=== PATIENT | male | born 1960 | race Caucasian/White ===

== ENCOUNTER 2018-01-25 14:06 | Inpatient (IN) | payer OTHER ==
[~2018-01-25] VITALS: Ht 182.9 cm; Wt 93.0 kg
[~2018-01-25 14:06] MED LIST: GLYCOPYRROLATE 1 MG/5 ML SYRINGE IV PUSH ONE; LACTATED RINGER'S 1000 ML INJ 1,000 ML IV ONE; LIDOCAINE HCL 1% PF 5 ML SYRINGE OTHER ONE; NEOSTIGMINE 5 MG/5 ML SYRINGE IV PUSH ONE; ONDANSETRON HCL 4 MG/2 ML VIAL IV ONE; PHENYLEPH/NS 1000 MCG/10 ML SYR IV ONE; PROPOFOL 200 MG/20 ML AMP IV ONE; ROCURONIUM INJ 50 MG/5 ML SYRINGE IV PUSH ONE; SUCCINYLCHOLINE CHLORIDE 100 MG/5 ML SYRINGE IV PUSH ONE; ePHEDrine/NS 25 MG/5 ML SYRINGE IV ONE
[2018-01-25] MEDS ORDERED: IOHEXOL 350 MG/ML 10 ML VIAL (for RAD DIAG) IVCONTRAST ONE ×2 (14:07→21:10)
[2018-01-25 14:10] VITALS: O2SAT 98
[2018-01-25] MEDS ORDERED: MORPHINE SULFATE 4 MG/ML INJ ONE (14:12)
[2018-01-25] MEDS ORDERED: ceFAZolin 2 GM PREMIX 50 ML ONE (14:13)
[2018-01-25 14:15] VITALS: O2SAT 98
[2018-01-25] MEDS ORDERED: DIPHTH/TETANUS/ACEL PERTUSSIS (BOOSTER) 0.5 ML VIAL/PFS IM ONE (14:16)
[2018-01-25 14:31] LABS: BASOPHIL % 0.5 % (0.0-2.0); EOSINOPHIL # 0.1 TH/MM3 (0-0.4); EOSINOPHIL % 1.7 % (0.0-4.0); HEMATOCRIT 45.5 % (39.0-51.0); HEMOGLOBIN 15.6 GM/DL (13.0-17.0); LYMPH % 28.9 % (9.0-44.0); LYMPHOCYTE # 2.3 TH/MM3 (1.0-4.8); MEAN CELL VOLUME 90.6 FL (80.0-100.0); MEAN CORPUSCULAR HGB CONC 34.2 % (32.0-36.0); MEAN PLATELET VOLUME 8.3 FL (7.0-11.0); MONOCYTE # 0.5 TH/MM3 (0-0.9); NEUT % 62.9 % (16.0-70.0); PLATELET COUNT 218 TH/MM3 (150-450); RED BLOOD COUNT 5.02 MIL/MM3 (4.50-5.90); RED CELL DISTRIBUTION WIDTH 13.5 % (11.6-17.2)
[2018-01-25 14:43] LABS: PROTHROMBIN TIME - PATIENT 10.6 SEC (9.8-11.6)
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
[2018-01-25] MEDS ORDERED: MORPHINE SULFATE 4 MG/ML INJ IV PUSH ONE (14:45)
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
[2018-01-25 15:18] VITALS: PULSE 76; RESP 18; O2SAT 98
[2018-01-25] MEDS ORDERED: GENTAMICIN SULFATE 80 MG/2 ML VIAL ONE (15:34)
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
[2018-01-25] MEDS ORDERED: ONDANSETRON HCL 4 MG/2 ML VIAL IV PUSH PRN (18:30)
[2018-01-25] MEDS ORDERED: ACETAMINOPHEN/HYDROcodone 325 MG/5 MG TAB PO PRN ×3 (18:30→19:00)
[2018-01-25] MEDS ORDERED: ENALAPRILAT 1.25 MG/ML VIAL IV PUSH PRN (18:30)
[2018-01-25] MEDS ORDERED: MIDAZOLAM HCL 2 MG/2 ML VIAL ONE (18:52)
[2018-01-25] MEDS ORDERED: DO NOT ADM ANY ANTICOAGULANT DRUGS PRN (18:53)
[2018-01-25] MEDS ORDERED: ROPIVACAINE 1% PF INJ 20 ML AMP ONE (18:53)
[2018-01-25] MEDS ORDERED: LIDOCAINE 2%/EPINEPHrine PF 1:200,000 20ML SDV ONE (18:53)
[2018-01-25] MEDS ORDERED: *MEPERIDINE 25 MG INJ VIAL PERIprocedural Use ONLY ONE (18:55)
[2018-01-25] MEDS ORDERED: MORPHINE SULFATE 2 MG/ML SYRINGE SQ PRN (19:00)
[2018-01-25] MEDS ORDERED: GENTAMICIN SULFATE 80 MG/2 ML VIAL IM SCH (19:00)
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
[2018-01-25] MEDS: SODIUM CHLOR 0.9% 1000 ML INJ 1,000 ML IV SCH (19:30)
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
[2018-01-25] MEDS: PANTOPRAZOLE SODIUM 40 MG VIAL IVP SCH (19:45)
[2018-01-25 20:00] VITALS: BP 140/71; PULSE 80; RESP 18; TEMP 97.4; O2SAT 97
[2018-01-25] MEDS: GENTAMICIN INJ 80 MG in SODIUM CHLORIDE 0.9% INJ 100 ML IV SCH (22:39)
[2018-01-26] VITALS: BP 112/74; PULSE 102; RESP 18; TEMP 98.6; O2SAT 94
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
[2018-01-26 04:00] VITALS: BP 118/71; PULSE 84; RESP 18; TEMP 98.5; O2SAT 92
[2018-01-26 04:40] LABS: AUTOMATED NEUTROPHIL # 8.6 TH/MM3 (1.8-7.7); BASOPHIL % 0.1 % (0.0-2.0); HEMATOCRIT 37.4 % (39.0-51.0); HEMOGLOBIN 12.9 GM/DL (13.0-17.0); LYMPH % 4.5 % (9.0-44.0); LYMPHOCYTE # 0.4 TH/MM3 (1.0-4.8); MEAN CELL VOLUME 90.7 FL (80.0-100.0); MEAN CORPUSCULAR HEMOGLOBIN 31.2 PG (27.0-34.0); MEAN CORPUSCULAR HGB CONC 34.4 % (32.0-36.0); MEAN PLATELET VOLUME 8.1 FL (7.0-11.0); MONO % 4.7 % (0.0-8.0); MONOCYTE # 0.4 TH/MM3 (0-0.9); NEUT % 90.7 % (16.0-70.0); PLATELET COUNT 141 TH/MM3 (150-450); RED BLOOD COUNT 4.13 MIL/MM3 (4.50-5.90); RED CELL DISTRIBUTION WIDTH 13.1 % (11.6-17.2); WHITE BLOOD COUNT 9.5 TH/MM3 (4.0-11.0)
[2018-01-26] MEDS: SODIUM CHLOR 0.9% 1000 ML INJ 1,000 ML IV SCH ×3 (04:45→23:13)
[2018-01-26 05:01] LABS: ALBUMIN 3.2 GM/DL (3.4-5.0); AST (GOT) 33 U/L (15-37); BICARBONATE 24.8 MEQ/L (21.0-32.0); BLOOD UREA NITROGEN 14 MG/DL (7-18); CALCIUM 8.4 MG/DL (8.5-10.1); CHLORIDE 102 MEQ/L (98-107); CREATININE 1.35 MG/DL (0.60-1.30); GLOMERULAR FILTRATION RATE 46 ML/MIN (>89); GLUCOSE,RANDOM 137 MG/DL (74-106); SODIUM (NA) 137 MEQ/L (136-145)
[2018-01-26 05:02] LABS: ALT (GPT) 28 U/L (12-78)
[2018-01-26 05:04] LABS: ALKALINE PHOSPHATASE 49 U/L (45-117); TOTAL BILIRUBIN ADULT 0.6 MG/DL (0.2-1.0); TOTAL PROTEIN 6.4 GM/DL (6.4-8.2)
[2018-01-26] MEDS: GENTAMICIN INJ 80 MG in SODIUM CHLORIDE 0.9% INJ 100 ML IV SCH ×3 (05:22→21:48)
[2018-01-26 08:00] VITALS: BP 127/73; PULSE 83; RESP 19; TEMP 97.6; O2SAT 95
[2018-01-26] MEDS: MAGNESIUM HYDROXIDE SUSP 30 ML CUP PO SCH ×2 (08:56→21:47)
[2018-01-26] MEDS: DOCUSATE SODIUM 50 MG/SENNA 8.6 MG TAB PO SCH ×2 (08:56→21:47)
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
[2018-01-26 12:00] VITALS: BP 113/64; PULSE 75; RESP 18; TEMP 97.9; O2SAT 93
[2018-01-26] MEDS ORDERED: MAGN30S PO (13:20)
[2018-01-26] MEDS ORDERED: PERI PO (13:20)
[2018-01-26] MEDS: ENOXAPARIN SODIUM 40 MG/0.4 ML SYRINGE SQ SCH (14:02)
[2018-01-26 16:00] VITALS: BP 114/62; PULSE 78; RESP 17; TEMP 98; O2SAT 94
[2018-01-26] MEDS: PANTOPRAZOLE SODIUM 40 MG VIAL IVP SCH (18:01)
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
[2018-01-26 19:58] VITALS: BP 113/60; PULSE 82; RESP 17; TEMP 98.9; O2SAT 96
[2018-01-26] MEDS: ACETAMINOPHEN/HYDROcodone 325 MG/7.5 MG TAB PO PRN (21:48)
[2018-01-27] MEDS: GENTAMICIN INJ 80 MG in SODIUM CHLORIDE 0.9% INJ 100 ML IV SCH ×3 (04:32→21:23)
[2018-01-27] MEDS: ACETAMINOPHEN/HYDROcodone 325 MG/7.5 MG TAB PO PRN ×4 (04:40→17:53)
[2018-01-27 04:51] LABS: AUTOMATED NEUTROPHIL # 5.8 TH/MM3 (1.8-7.7); BASOPHIL % 0.1 % (0.0-2.0); HEMATOCRIT 31.8 % (39.0-51.0); HEMOGLOBIN 11.1 GM/DL (13.0-17.0); MEAN CELL VOLUME 91.2 FL (80.0-100.0); MEAN CORPUSCULAR HEMOGLOBIN 31.8 PG (27.0-34.0); MEAN CORPUSCULAR HGB CONC 34.9 % (32.0-36.0); MEAN PLATELET VOLUME 8.2 FL (7.0-11.0); MONO % 9.1 % (0.0-8.0); MONOCYTE # 0.7 TH/MM3 (0-0.9); NEUT % 77.8 % (16.0-70.0); PLATELET COUNT 117 TH/MM3 (150-450); RED BLOOD COUNT 3.49 MIL/MM3 (4.50-5.90); WHITE BLOOD COUNT 7.4 TH/MM3 (4.0-11.0)
[2018-01-27 05:05] LABS: BICARBONATE 30.3 MEQ/L (21.0-32.0); CALCIUM 7.9 MG/DL (8.5-10.1)
[2018-01-27 07:35] VITALS: BP 105/58; PULSE 70; RESP 18; TEMP 97.9; O2SAT 96
[2018-01-27] MEDS: MAGNESIUM HYDROXIDE SUSP 30 ML CUP PO SCH ×2 (09:08→21:22)
[2018-01-27] MEDS: DOCUSATE SODIUM 50 MG/SENNA 8.6 MG TAB PO SCH ×2 (09:08→21:22)
[2018-01-27] MEDS: SODIUM CHLOR 0.9% 1000 ML INJ 1,000 ML IV SCH (09:09)
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
[2018-01-27] MEDS: ENOXAPARIN SODIUM 40 MG/0.4 ML SYRINGE SQ SCH (14:03)
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
[2018-01-27 16:00] VITALS: BP 116/58; PULSE 82; RESP 19; TEMP 98.3; O2SAT 97
[2018-01-27] MEDS: MORPHINE SULFATE 2 MG/ML SYRINGE IV PRN (16:12)
[2018-01-27] MEDS: PANTOPRAZOLE SODIUM 40 MG VIAL IVP SCH (17:53)
[2018-01-27 20:00] VITALS: BP 130/72; PULSE 75; RESP 18; TEMP 98.8; O2SAT 97
[2018-01-28] VITALS: BP 150/75; PULSE 78; RESP 17; TEMP 97.2; O2SAT 95
[2018-01-28] MEDS: MORPHINE SULFATE 2 MG/ML SYRINGE IV PRN ×2 (02:58→06:56)
[2018-01-28] MEDS: SODIUM CHLORIDE 0.9% FLUSH 10 ML FLUSH IV FLUSH PRN ×2 (02:59→17:37)
[2018-01-28] MEDS: GENTAMICIN INJ 80 MG in SODIUM CHLORIDE 0.9% INJ 100 ML IV SCH ×2 (04:39→13:50)
[2018-01-28 07:25] VITALS: BP 144/80; PULSE 75; RESP 20; TEMP 99; O2SAT 96
[2018-01-28] MEDS ORDERED: WALKER WHEELS/F1 MIS (07:41)
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
[2018-01-28] MEDS: ACETAMINOPHEN/HYDROcodone 325 MG/7.5 MG TAB PO PRN ×4 (08:39→21:47)
[2018-01-28] MEDS: MAGNESIUM HYDROXIDE SUSP 30 ML CUP PO SCH ×2 (08:41→21:00)
[2018-01-28] MEDS: DOCUSATE SODIUM 50 MG/SENNA 8.6 MG TAB PO SCH ×2 (08:41→21:00)
[2018-01-28] MEDS: LACTULOSE SYRUP 20 GM/30 ML CUP PO SCH (08:41)
[2018-01-28 12:00] VITALS: BP 131/82; PULSE 78; RESP 20; TEMP 98.7; O2SAT 95
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
[2018-01-28] MEDS: ENOXAPARIN SODIUM 40 MG/0.4 ML SYRINGE SQ SCH (13:49)
[2018-01-28 16:00] VITALS: BP 127/70; PULSE 73; RESP 18; TEMP 98.6; O2SAT 97
--- NOTE | 2018-01-28 17:27 | PD.POD ---
Subjective Pain score: 5 Remarks Doing well he has questions regarding definitive care for his foot injuries. Pain appears to be well-controlled with oral pain meds. Past Med/Surg/Social History Social History Smoking Status: Never Smoker Objective Vital Signs Vital Signs Date Time Temp Pulse Resp B/P (MAP) Pulse Ox O2 Delivery O2 Flow Rate FiO2 01/28/18 16:00 98.6 73 18 127/70 (89) 97 01/28/18 12:00 98.7 78 20 131/82 (98) 95 01/28/18 09:39 16 01/28/18 07:25 99.0 75 20 144/80 (101) 96 01/28/18 00:00 97.2 78 17 150/75 (100) 95 01/27/18 20:00 98.8 75 18 130/72 (91) 97 Coded Allergies: No Known Allergies (Unverified , 01/25/18) Medications and IVs Administered Medications Medications (Trade) Dose Ordered Sig/Krissy Route PRN Reason Start Time Stop Time Status Last Admin Dose Admin Sodium Chloride (NS Flush) 2 ml UNSCH PRN IV FLUSH FLUSH AFTER USING IV ACCESS 01/25/18 18:30 01/28/18 02:59 Pantoprazole Sodium (Protonix Inj) 40 mg Q24H IVP 01/25/18 18:30 01/27/18 17:53 Cefazolin Sodium 1000 mg/Sodium Chloride 100 ml @ 200 mls/hr Q8H IV 01/25/18 14:00 01/28/18 15:20 Acetaminophen/ Hydrocodone Bitart ([place] 7.5-325 Mg) 1 tab Q4H PRN PO PAIN SCALE 6-10 01/25/18 19:00 01/28/18 13:48 Acetaminophen/ Hydrocodone Bitart ([place] 5-325 Mg) 1 tab Q4H PRN PO PAIN SCALE 1 -5 01/25/18 19:00 01/27/18 22:02 Gentamicin Sulfate 80 mg/ Sodium Chloride 102 ml @ 204 mls/hr Q8H IV 01/25/18 22:00 01/28/18 21:59 01/28/18 13:50 Senna/Docusate Sodium (Briana-Colace) 1 tab BID PO 01/26/18 09:00 01/28/18 08:41 Magnesium Hydroxide (Milk Of Magnesia Liq) 30 ml BID PO 01/26/18 09:00 01/28/18 08:41 Enoxaparin Sodium (Lovenox Inj) 40 mg Q24H SQ 01/26/18 14:00 01/28/18 13:49 Morphine Sulfate (Morphine Inj) 2 mg Q4H PRN IV breakthrough pain 01/27/18 16:15 01/28/18 06:56 Lactulose (Lactulose Liq) 30 ml DAILY PO 01/28/18 09:00 01/28/18 08:41 Other Results Laboratory Tests Test 01/27/18 04:25 White Blood Count 7.4 TH/MM3 Red Blood Count 3.49 MIL/MM3 Hemoglobin 11.1 GM/DL Hematocrit 31.8 % Mean Corpuscular Volume 91.2 FL Mean Corpuscular Hemoglobin 31.8 PG Mean Corpuscular Hemoglobin Concent 34.9 % Red Cell Distribution Width 13.0 % Platelet Count 117 TH/MM3 Mean Platelet Volume 8.2 FL Neutrophils (%) (Auto) 77.8 % Lymphocytes (%) (Auto) 13.0 % Monocytes (%) (Auto) 9.1 % Eosinophils (%) (Auto) 0.0 % Basophils (%) (Auto) 0.1 % Neutrophils # (Auto) 5.8 TH/MM3 Lymphocytes # (Auto) 1.0 TH/MM3 Monocytes # (Auto) 0.7 TH/MM3 Eosinophils # (Auto) 0.0 TH/MM3 Basophils # (Auto) 0.0 TH/MM3 CBC Comment DIFF FINAL Differential Comment Laboratory Tests Test 01/27/18 04:25 Blood Urea Nitrogen 15 MG/DL Creatinine 1.00 MG/DL Random Glucose 116 MG/DL Calcium Level 7.9 MG/DL Sodium Level 141 MEQ/L Potassium Level 4.0 MEQ/L Chloride Level 104 MEQ/L Carbon Dioxide Level 30.3 MEQ/L Anion Gap 7 MEQ/L Estimat Glomerular Filtration Rate 76 ML/MIN Microbiology Date/Time Source Procedure Growth Status 01/25/18 18:28 Wound Foot Fungal Smear - Final NO FUNGAL ELEMENTS SEEN. Resulted 01/25/18 18:28 Wound Foot Fungal Culture Pending Resulted 01/25/18 18:28 Wound Foot Acid Fast Stain - Final NO ACID FAST BACILLI SEEN Resulted 01/25/18 18:28 Wound Foot Mycobacterial Culture Pending Resulted 01/25/18 18:28 Wound Foot Gram Stain - Final Complete 4/24/18 18:28 Wound Foot Wound Culture - Final NO GROWTH IN 72 HRS.--AEROBICALLY OR ... Complete Physical Exam Remarks Left lower extremity examined: Capillary fill time appears to be only slightly delayed on the hallux. There is purple discoloration of second third fourth and significant darkness of the fifth digit. Pins intact external fixator bandaged splint intact calf nontender nondistended no strikethrough on bandage. Delayed sensation to the lesser digits. Assessment & Plan A/P Left foot complex laceration degloving injury, multiple metatarsal fractures, dislocation of MPJs, proximal fibular fracture minimally displaced. Status post incision and drainage debridement application of external fixator repair of complex laceration. Bandage will be changed tomorrow to review the extent of the surviving skin. We discussed in detail the high probability of needing a transmetatarsal amputation. We reviewed that it may take up to 3 weeks for the zone of injury to declare itself. Continue pain control for now. Will follow tomorrow Deven Larios DPM Jan 28, 2018 17:27
[2018-01-28] MEDS: PANTOPRAZOLE SODIUM 40 MG VIAL IVP SCH (17:36)
--- NOTE | 2018-01-28 17:43 | PD.POD ---
Subjective Podiatric Problems LATE ENTRY, PATIENT SEEN 01/27/18 AT 1800 POD #2 left foot pinning fixation of left foot met fractures and repair of degloving injury. Pt states that his pain is well tolerated with pain meds. He denies any n/v/f/h/c/sob. He has not attempted to get out of bed yet. Pain score: 5 Past Med/Surg/Social History Social History Smoking Status: Never Smoker Objective Vital Signs Vital Signs Date Time Temp Pulse Resp B/P (MAP) Pulse Ox O2 Delivery O2 Flow Rate FiO2 01/28/18 16:00 98.6 73 18 127/70 (89) 97 01/28/18 12:00 98.7 78 20 131/82 (98) 95 01/28/18 09:39 16 01/28/18 07:25 99.0 75 20 144/80 (101) 96 01/28/18 00:00 97.2 78 17 150/75 (100) 95 01/27/18 20:00 98.8 75 18 130/72 (91) 97 Coded Allergies: No Known Allergies (Unverified , 01/25/18) Exam-Podiatry Remarks Left foot:All sutures and pins intact, severe edema with mottling to the dorsal and plantar forefoot, CFT is mildly delayed to all digits, sensation is intact, ROM not tested Left fibula: mild tenderness to proximal fibula with palpation, no edema, no ecchymosis Calf is supple and non tender to compression, no signs of DVT Assessment & Plan A/P 1) s/p left foot degloving injury repair with temporary fixation of fractured met 2) Non displaced left fibula fracture -NWBing LLE -no ice, keep LLE in neutral position -cont pain meds and abx -will cont to monitor the pt closely while in house, he is aware that more surgery will be needed and possibly an amputation -no intervention needed for fibula fx Cassidy Merida DPM Jan 28, 2018 17:43
[2018-01-28 20:00] VITALS: BP 130/72; PULSE 80; RESP 20; TEMP 98.6; O2SAT 97
[2018-01-28 23:00] VITALS: BP 131/73; PULSE 97; RESP 16; TEMP 98.6; O2SAT 97
[2018-01-29] MEDS: ACETAMINOPHEN/HYDROcodone 325 MG/7.5 MG TAB PO PRN ×5 (02:14→22:01)
[2018-01-29 08:00] VITALS: BP 119/79; PULSE 74; RESP 17; TEMP 97.8; O2SAT 96
[2018-01-29] MEDS: DOCUSATE SODIUM 50 MG/SENNA 8.6 MG TAB PO SCH ×2 (08:40→22:00)
[2018-01-29] MEDS: LACTULOSE SYRUP 20 GM/30 ML CUP PO SCH (08:41)
[2018-01-29] MEDS: MAGNESIUM HYDROXIDE SUSP 30 ML CUP PO SCH ×2 (08:41→21:00)
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
[2018-01-29] MEDS: MORPHINE SULFATE 2 MG/ML SYRINGE IV PRN (09:46)
--- NOTE | 2018-01-29 10:39 | PD.POD ---
Subjective Pain score: 5 Remarks Patient slept well last night no new events foot pain appears to be controlled Past Med/Surg/Social History Social History Smoking Status: Never Smoker Objective Vital Signs Vital Signs Date Time Temp Pulse Resp B/P (MAP) Pulse Ox O2 Delivery O2 Flow Rate FiO2 01/29/18 08:00 97.8 74 17 119/79 (92) 96 01/28/18 23:00 98.6 97 16 131/73 (92) 97 01/28/18 20:00 98.6 80 20 130/72 (91) 97 01/28/18 16:00 98.6 73 18 127/70 (89) 97 01/28/18 12:00 98.7 78 20 131/82 (98) 95 Coded Allergies: No Known Allergies (Unverified , 01/25/18) Medications and IVs Administered Medications Medications (Trade) Dose Ordered Sig/Krissy Route PRN Reason Start Time Stop Time Status Last Admin Dose Admin Sodium Chloride (NS Flush) 2 ml UNSCH PRN IV FLUSH FLUSH AFTER USING IV ACCESS 01/25/18 18:30 01/28/18 17:37 Pantoprazole Sodium (Protonix Inj) 40 mg Q24H IVP 01/25/18 18:30 01/28/18 17:36 Cefazolin Sodium 1000 mg/Sodium Chloride 100 ml @ 200 mls/hr Q8H IV 01/25/18 14:00 01/29/18 05:12 Acetaminophen/ Hydrocodone Bitart ([place] 7.5-325 Mg) 1 tab Q4H PRN PO PAIN SCALE 6-10 01/25/18 19:00 01/29/18 06:36 Acetaminophen/ Hydrocodone Bitart ([place] 5-325 Mg) 1 tab Q4H PRN PO PAIN SCALE 1 -5 01/25/18 19:00 01/27/18 22:02 Senna/Docusate Sodium (Briana-Colace) 1 tab BID PO 01/26/18 09:00 01/29/18 08:40 Magnesium Hydroxide (Milk Of Magnesia Liq) 30 ml BID PO 01/26/18 09:00 01/28/18 08:41 Enoxaparin Sodium (Lovenox Inj) 40 mg Q24H SQ 01/26/18 14:00 01/28/18 13:49 Morphine Sulfate (Morphine Inj) 2 mg Q4H PRN IV breakthrough pain 01/27/18 16:15 01/29/18 09:46 Lactulose (Lactulose Liq) 30 ml DAILY PO 01/28/18 09:00 01/28/18 08:41 Exam-Podiatry Remarks Left lower extremity examined: Capillary fill time appears to be only slightly delayed on the hallux. There is purple discoloration of second third fourth and significant darkness of the fifth digit. Pins intact external fixator bandaged splint intact calf nontender nondistended no strikethrough on bandage. Delayed sensation to the lesser digits. Plantar flap is significant with venous congestion however has some capillary fill time, pretibial abrasion proximally uncomplicated no signs of infection no obvious instability upon palpating proximal tibia and fibula Physical Exam General appearance: comfortable Nutritional status: normal Orientation: alert and oriented x3 Neck: FINDINGS: normal Chest appearance: normal Respiratory effort: FINDINGS: normal Assessment & Plan A/P Left foot complex laceration degloving injury, multiple metatarsal fractures, dislocation of MPJs, proximal fibular fracture minimally displaced. Status post incision and drainage debridement application of external fixator repair of complex laceration. Bandage changed, there is progressive ischemia of the second digit and the distal aspect of the digits 345. Zone of injury is uncertain at this point and viability of the forefoot cannot be determined. Recommend continue pain control and observation over the weekend. Bandage will be changed again Wednesday with continued assessment for viability of the forefoot. High chance at this point of second digit amputation, revision of external fixator sometime next week. Deven Larios DPM Jan 29, 2018 10:39
[2018-01-29 12:00] VITALS: BP 127/79; PULSE 77; RESP 17; TEMP 98.1; O2SAT 98
[2018-01-29] MEDS: ENOXAPARIN SODIUM 40 MG/0.4 ML SYRINGE SQ SCH (14:46)
[2018-01-29 16:00] VITALS: BP 125/71; PULSE 78; RESP 17; TEMP 98.1; O2SAT 96
[2018-01-29] MEDS: PANTOPRAZOLE SODIUM 40 MG VIAL IVP SCH (16:46)
[2018-01-29 20:00] VITALS: BP 126/75; PULSE 84; RESP 18; TEMP 98.9; O2SAT 97
[2018-01-30] VITALS: BP 135/76; PULSE 79; RESP 20; TEMP 98.9; O2SAT 96
[2018-01-30] MEDS: ACETAMINOPHEN/HYDROcodone 325 MG/7.5 MG TAB PO PRN ×5 (03:48→21:20)
[2018-01-30] MEDS: MAGNESIUM HYDROXIDE SUSP 30 ML CUP PO SCH ×2 (07:48→20:38)
[2018-01-30] MEDS: LACTULOSE SYRUP 20 GM/30 ML CUP PO SCH (07:48)
[2018-01-30] MEDS: DOCUSATE SODIUM 50 MG/SENNA 8.6 MG TAB PO SCH ×2 (07:48→20:38)
[2018-01-30 08:00] VITALS: BP 129/78; PULSE 80; RESP 17; TEMP 97.6; O2SAT 97
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
[2018-01-30 12:00] VITALS: BP 134/78; PULSE 89; RESP 17; TEMP 97.6; O2SAT 98
[2018-01-30] MEDS: ENOXAPARIN SODIUM 40 MG/0.4 ML SYRINGE SQ SCH (12:55)
--- NOTE | 2018-01-30 14:18 | PD.POD ---
Subjective Pain score: 5 Remarks No new events foot pain appears to be controlled Past Med/Surg/Social History Social History Smoking Status: Never Smoker Objective Vital Signs Vital Signs Date Time Temp Pulse Resp B/P (MAP) Pulse Ox O2 Delivery O2 Flow Rate FiO2 01/30/18 13:32 16 01/30/18 12:00 97.6 89 17 134/78 (96) 98 01/30/18 08:00 97.6 80 17 129/78 (95) 97 01/30/18 00:00 98.9 79 20 135/76 (95) 96 01/29/18 20:00 98.9 84 18 126/75 (92) 97 01/29/18 16:00 98.1 78 17 125/71 (89) 96 Coded Allergies: No Known Allergies (Unverified , 01/25/18) Medications and IVs Administered Medications Medications (Trade) Dose Ordered Sig/Krissy Route PRN Reason Start Time Stop Time Status Last Admin Dose Admin Sodium Chloride (NS Flush) 2 ml UNSCH PRN IV FLUSH FLUSH AFTER USING IV ACCESS 01/25/18 18:30 01/28/18 17:37 Pantoprazole Sodium (Protonix Inj) 40 mg Q24H IVP 01/25/18 18:30 01/29/18 16:46 Cefazolin Sodium 1000 mg/Sodium Chloride 100 ml @ 200 mls/hr Q8H IV 01/25/18 14:00 01/30/18 12:55 Acetaminophen/ Hydrocodone Bitart ([place] 7.5-325 Mg) 1 tab Q4H PRN PO PAIN SCALE 6-10 01/25/18 19:00 01/30/18 12:54 Acetaminophen/ Hydrocodone Bitart ([place] 5-325 Mg) 1 tab Q4H PRN PO PAIN SCALE 1 -5 01/25/18 19:00 01/27/18 22:02 Senna/Docusate Sodium (Briana-Colace) 1 tab BID PO 01/26/18 09:00 01/30/18 07:48 Magnesium Hydroxide (Milk Of Magnesia Liq) 30 ml BID PO 01/26/18 09:00 01/28/18 08:41 Enoxaparin Sodium (Lovenox Inj) 40 mg Q24H SQ 01/26/18 14:00 01/30/18 12:55 Morphine Sulfate (Morphine Inj) 2 mg Q4H PRN IV breakthrough pain 01/27/18 16:15 01/29/18 09:46 Lactulose (Lactulose Liq) 30 ml DAILY PO 01/28/18 09:00 01/28/18 08:41 Objective Remarks Left lower extremity examined: Capillary fill time appears to be only slightly delayed on the hallux. There is purple discoloration of second third fourth and significant darkness of the fifth digit. Pins intact external fixator bandaged splint intact calf nontender nondistended no strikethrough on bandage. Delayed sensation to the lesser digits. Minimal proximal fibula pain, no instability noted. Assessment & Plan A/P Left foot complex laceration degloving injury, multiple metatarsal fractures, dislocation of MPJs, proximal fibular fracture minimally displaced. Status post incision and drainage debridement application of external fixator repair of complex laceration. Bandage to be changed tomorrow, there continues to be progressive ischemia of the second digit and the distal aspect of the digits 345. Zone of injury remains uncertain at this point and viability of the forefoot cannot be determined. Recommend continue pain control. Possible revisional surgery(TMA?) late next week. Will sign out to Dr. Field. Deven Larios DPM Jan 30, 2018 14:18
[2018-01-30 16:00] VITALS: BP 153/85; PULSE 79; RESP 17; TEMP 98; O2SAT 99
[2018-01-30] MEDS: PANTOPRAZOLE SODIUM 40 MG VIAL IVP SCH (16:39)
[2018-01-30 20:00] VITALS: BP 131/79; PULSE 78; RESP 18; TEMP 97.9; O2SAT 97
[2018-01-31] VITALS: BP 122/77; PULSE 89; RESP 18; TEMP 98.7; O2SAT 96
[2018-01-31] MEDS: ACETAMINOPHEN/HYDROcodone 325 MG/7.5 MG TAB PO PRN ×4 (04:22→21:39)
[2018-01-31] MEDS ORDERED: LACTULOSE SYRUP 20 GM/30 ML CUP PO PRN (07:15)
[2018-01-31 08:00] VITALS: BP 134/76; PULSE 71; RESP 18; TEMP 98.4; O2SAT 96
[2018-01-31 08:01] LABS: AUTOMATED NEUTROPHIL # 6.4 TH/MM3 (1.8-7.7); BASOPHIL % 0.4 % (0.0-2.0); EOSINOPHIL # 0.1 TH/MM3 (0-0.4); EOSINOPHIL % 0.9 % (0.0-4.0); HEMATOCRIT 33.1 % (39.0-51.0); HEMOGLOBIN 11.4 GM/DL (13.0-17.0); LYMPH % 13.2 % (9.0-44.0); LYMPHOCYTE # 1.1 TH/MM3 (1.0-4.8); MEAN CELL VOLUME 90.6 FL (80.0-100.0); MEAN CORPUSCULAR HEMOGLOBIN 31.1 PG (27.0-34.0); MEAN CORPUSCULAR HGB CONC 34.4 % (32.0-36.0); MEAN PLATELET VOLUME 7.8 FL (7.0-11.0); MONO % 9.9 % (0.0-8.0); MONOCYTE # 0.8 TH/MM3 (0-0.9); NEUT % 75.6 % (16.0-70.0); PLATELET COUNT 190 TH/MM3 (150-450); RED BLOOD COUNT 3.65 MIL/MM3 (4.50-5.90); WHITE BLOOD COUNT 8.5 TH/MM3 (4.0-11.0)
[2018-01-31 08:19] LABS: BICARBONATE 26.8 MEQ/L (21.0-32.0); CALCIUM 8.9 MG/DL (8.5-10.1); CREATININE 1.05 MG/DL (0.60-1.30)
[2018-01-31] MEDS: DOCUSATE SODIUM 50 MG/SENNA 8.6 MG TAB PO SCH ×2 (09:00→21:00)
[2018-01-31] MEDS: MAGNESIUM HYDROXIDE SUSP 30 ML CUP PO SCH ×2 (09:00→21:00)
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
[2018-01-31 12:00] VITALS: BP 131/81; PULSE 80; RESP 20; TEMP 99.1; O2SAT 97
[2018-01-31] MEDS: ENOXAPARIN SODIUM 40 MG/0.4 ML SYRINGE SQ SCH (13:40)
[2018-01-31 16:00] VITALS: BP 132/77; PULSE 76; RESP 18; TEMP 98.5; O2SAT 98
--- NOTE | 2018-01-31 16:40 | HHI.FF ---
Face to Face Verification Diagnosis: (1) Open fracture of foot Home Health Nursing Order: Wound care and dressing changes (M/W/F, silvadene to wounds, adpatic to sutures, padded splint, nothing tight) I have seen patient Yandel Ceja on 01/31/18. My clinical findings support the need for the requested home health care services because: High risk of falls Infection w/ risk of complications I certify that my clinical findings support that this patient is homebound because: Post-op weakness Unsteady gait/balance Unsafe to leave home unassisted Cassidy Merida DPM Jan 31, 2018 16:40
--- NOTE | 2018-01-31 16:44 | PD.POD ---
Subjective Podiatric Problems s/p left foot pinning fixation of left foot met fractures and repair of degloving injury on 01/25. Pt states that his pain is well tolerated with pain meds. He denies any n/v/f/h/c/sob. Pain score: 5 Past Med/Surg/Social History Social History Smoking Status: Never Smoker Objective Vital Signs Vital Signs Date Time Temp Pulse Resp B/P (MAP) Pulse Ox O2 Delivery O2 Flow Rate FiO2 01/31/18 16:00 98.5 76 18 132/77 (95) 98 01/31/18 12:00 99.1 80 20 131/81 (98) 97 01/31/18 08:00 98.4 71 18 134/76 (95) 96 01/31/18 00:00 98.7 89 18 122/77 (92) 96 01/30/18 20:00 97.9 78 18 131/79 (96) 97 01/30/18 17:48 16 Coded Allergies: No Known Allergies (Unverified , 01/25/18) Physical Exam Remarks All sutures are intact and skin edges are well coapted, no erythema, slight sanginous drainage from medial wound. Dark mis appearance to tips of lesser digits and plantar lateral aspect of foot, no clear demarcation yet. + edema. Assessment & Plan A/P 1) s/p left foot degloving injury repair with temporary fixation of fractured met 2) Non displaced left fibula fracture -NWBing LLE -no ice, keep LLE in neutral position -no clear demarcation yet, pt has a place to live locally in town and anxious to leave the hospital. I am agreeable to his discharge as it may be several more weeks before the need for any amputation is certain -on discharge he will need HHC ([id number]) completed, PO abx, pain medication , and anti coagulants -f/u in office 5-7 days after d/c Cassidy Meriad DPM Jan 31, 2018 16:44
[2018-01-31 20:00] VITALS: BP 167/84; PULSE 97; RESP 20; TEMP 99.3; O2SAT 95
[2018-02-01] VITALS: BP 132/85; PULSE 79; RESP 18; TEMP 99.1; O2SAT 97
[2018-02-01] MEDS: ACETAMINOPHEN/HYDROcodone 325 MG/7.5 MG TAB PO PRN ×2 (03:30→10:07)
[2018-02-01] MEDS ORDERED: HYDR-3580 PO (07:20)
[2018-02-01] MEDS ORDERED: CEPH-460 PO (07:28)
[2018-02-01] MEDS ORDERED: ENOX40P SQ (07:28)
[2018-02-01 08:00] VITALS: BP 128/75; PULSE 63; RESP 18; TEMP 98.1; O2SAT 97
[2018-02-01] MEDS: MAGNESIUM HYDROXIDE SUSP 30 ML CUP PO SCH (08:04)
[2018-02-01] MEDS: DOCUSATE SODIUM 50 MG/SENNA 8.6 MG TAB PO SCH (08:04)
[2018-02-01] MEDS ORDERED: SILVER SULFADIAZINE 1% CR 50 GM JAR TOPICAL SCH (09:00)
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
== END 2018-02-01 12:08 | disposition home health service (06) | DRG 505 ==
LOC: NEPI 14:06 → NEDA 15:33 → EDBD 15:33 → N07A 20:08
PROVIDERS: ADMIT Surgery; ATTEND Surgery
PROC: 0QH Lower Bones, Insertion (ICD-10-PCS; 2018-01-25)
PROC: 0HQNXZZ Repair Left Foot Skin, External Approach (ICD-10-PCS; 2018-01-25)
PROC: 0QSP04Z Reposition Left Metatarsal with Internal Fixation Device, Open Approach (ICD-10-PCS; principal; 2018-01-25 16:25)
DX: S92.312B Displaced fracture of first metatarsal bone, left foot, initial encounter for open fracture (principal); S91.012A Laceration without foreign body, left ankle, initial encounter; B19.20 Unspecified viral hepatitis C without hepatic coma; S82.435A Nondisplaced oblique fracture of shaft of left fibula, initial encounter for closed fracture; S92.322B Displaced fracture of second metatarsal bone, left foot, initial encounter for open fracture; S92.352B Displaced fracture of fifth metatarsal bone, left foot, initial encounter for open fracture; M25.561 Pain in right knee; M25.462 Effusion, left knee; S70.01XA Contusion of right hip, initial encounter; R91.1 Solitary pulmonary nodule; G89.29 Other chronic pain; V23.4XXA Motorcycle driver injured in collision with car, pick-up truck or van in traffic accident, initial encounter; Z85.46 Personal history of malignant neoplasm of prostate; Z92.3 Personal history of irradiation
CPT/HCPCS: 70450; 71045; 71260; 72125; 72170; 73564; 73590; 73630; 74177; 75635; 76000; 80048; 80053; 85025; 85610; 85730; 86850; 86900; 86901; 87015; 87070; 87102; 87116; 87176; 87205; 87206; 90471; 90715; 94150; 96374; 96375; 96376; 99291; C1713; C9113; G0390; J0330; J0690; J1580; J1650; J2175; J2250; J2270; J2370; J2405; J2710; J2795; J3010; J7030; J7120; Q9967

== ENCOUNTER → 2018-03-02 | Day surgery (SDC) | payer OTHER ==
[~2018-03-02] VITALS: Ht 182.9 cm; Wt 103.0 kg
[~2018-03-02] MED LIST changes: +ACETAMINOPHEN 1000 MG/100 ML 100 ML IV ONE; +ACETAMINOPHEN/HYDROcodone 325 MG/5 MG TAB PO PRN; +BACT800T5 PO; +BUPIVACAINE HCL PF 0.5% 30 ML VIAL ONE; +CHLORHEXIDINE GLUCONATE 2 % 1 PACK (2 CLOTHS) TOPICAL PRN; +DEXAMETHASONE SOD PHOS 4 MG/ML VIAL IV ONE; +DO NOT ADM ANY ANTICOAGULANT DRUGS PRN; +ENOX40P SQ; -GLYCOPYRROLATE 1 MG/5 ML SYRINGE IV PUSH ONE; +HYDROmorphone HCL PF 2 MG/ML VIAL ONE; +LACTATED RINGER'S 1000 ML IV PRN; +METOPROLOL TARTRATE 25 MG TAB PO PRN; +MIDAZOLAM HCL 2 MG/2 ML VIAL ONE; +NEOMYCIN/POLYMYXIN 1 ML G.U. IRRIGANT ONE; -NEOSTIGMINE 5 MG/5 ML SYRINGE IV PUSH ONE; +NORC5TAB PO; -ONDANSETRON HCL 4 MG/2 ML VIAL IV ONE; +ONDANSETRON HCL 4 MG/2 ML VIAL IV PUSH ONE; -PHENYLEPH/NS 1000 MCG/10 ML SYR IV ONE; +POVIDONE IODINE 5% (ANTISEPSIS KIT) 4 APPLICATIONS EACH NARE PRN; +SODIUM CHLORID 0.9% 500 ML IV PRN; +WALKER WHEELS/F1 MIS; +ceFAZolin 2 GM PREMIX 50 ML IV ONE; +ceFAZolin 2 GM/DEX PREMIX 50 ML IV SCH; -ePHEDrine/NS 25 MG/5 ML SYRINGE IV ONE
--- NOTE | 2018-03-02 09:35 | MP ---
cc: Cassidy Merida DPM DATE OF OPERATION: 03/02/2018 SURGEON: Cassidy Merida DPM HEARING AID FITTER: Staff provided car rental sales assistant. PREOPERATIVE DIAGNOSIS: Dry gangrene, left foot digits 1 through 5. POSTOPERATIVE DIAGNOSIS: Dry gangrene, left foot digits 1 through 5. PROCEDURE PERFORMED: 1. Removal of external fixator. 2. Wound bed preparation and wound graft application. 3. Amputation of the hallux. 4. Partial ray amputations of 2,3,4 and 5. ESTIMATED BLOOD LOSS: 75 mL. ANESTHESIA: General. HEMOSTASIS: Anatomical dissection. INJECTABLES: None. MATERIALS USED: Included 2-0 Prolene, 3-0 chromic gut, NEOX graft. PATHOLOGY SENT: All of the forefoot of the left foot. COMPLICATIONS: None. INDICATIONS: Mr. Ceja is a 57-year-old male patient well known to me. He suffered an extensive trauma, a degloving injury to the left foot, which was originally fixated with pins and an external fixator; however, the blood supply was too badly damaged and the distal forefoot became ischemic and eventually demarcated and advancing to a gangrene. I spoke to the patient in detail about salvage options for the extremity and he was agreeable to a partial amputation and a wound graft. A consent was signed. The procedure was explained. No guarantees were given. PROCEDURE: Under mild sedation, the patient was brought into the operating room, placed on the operating table in a supine position. Following IV sedation, a pneumatic ankle tourniquet was placed around the left ankle. The foot was then scrubbed, prepped and draped in the usual aseptic manner. Upon evaluation, there was a small amount of maggots noted within the wound. The wound edges have maggots noted within the wound bed. The area was flushed with copious amounts of saline and the maggots were manually removed taken from the sterile field in order to provide a clean working environment. A large elliptical incision was created at the base of all the digits in a horizontal manner both dorsally and plantarly in order to remove the gangrenous digits. The external fixator was also removed. Pin holes were curetted free of any debris around the bone. The area was flushed with copious amounts of sterile saline. Any and all dry gangrene tissue was sharply removed and debrided. Unfortunately, this left the closure too tight to be performed and the risk of leaving the metatarsal head exposed too high for osteomyelitis infection chances. Therefore, I made the decision to perform a metatarsal head resection on METS 2 through 5. This allowed for an easier closure with minimal tension. Attention was directed to the dorsal aspect of the foot where there was a 6 x 6 cm full-thickness eschar, which was sharply debrided to the level of healthy tissue. The sites were all flushed with copious amounts of sterile saline. Wound beds were cleaned and the distal aspect was reapproximated using 2-0 Prolene. A NEOX wound graft was then cut to appropriate size, fenestrated and sutured in place at the dorsal wound using chromic gut. There was also a wound on the medial aspect of the foot measuring approximately 6 x 2 cm and the remaining piece of graft available was used to suture into the distal aspect of that wound. Any and all bleeders were ligated and cauterized as necessary. The foot was cleaned. There was adequate closure noted and the graft was intact. A sterile dressing of Adaptic, 4 x 4's, cast padding, and a well-padded posterior splint was applied. The patient tolerated the procedure and the anesthesia well. He will recover in the PACU for a period of time before being discharged home with written and oral postoperative instructions. HAMMAD Schofield/DL , 09:17 AM , 09:34 AM SUHA
--- NOTE | 2018-03-02 10:18 | RADRPT ---
EXAM DATE: 03/02/2018 9:56 AM EDT AGE/SEX: 57 years / Male INDICATIONS: Post op, partial amputation left foot. CLINICAL DATA: This is the patient's initial encounter. Patient reports that signs and symptoms have been present for 1 day and indicates a pain score of Nonresponsive. MEDICAL/SURGICAL HISTORY: None. None. COMPARISON: [facility] [place] (1 VW), 01/25/2018. . FINDINGS: AP, lateral and oblique views of left foot were obtained. The foot has been casted obscuring the fine bony detail. The phalanges have all been amputated. The fractures of the first second and fifth meta tarsals are now in near-anatomic alignment. The distal aspects of the third through fifth metatarsal heads at been amputated as well. CONCLUSION: Interval postsurgical changes as described. Electronically signed by: Giovanny Esparza MD 03/02/2018 10:17 AM EDT
[2018-03-02 11:08] VITALS: BP 106/74; PULSE 80; RESP 16; TEMP 97.7; O2SAT 99
--- NOTE | 2018-03-02 13:57 | EKG ---
Date Performed: 03/02/2018 Time Performed: 06:30:15 PTAGE: 57 years EKG: SINUS BRADYCARDIA BORDERLINE LEFT AXIS DEVIATION MODERATE VOLTAGE CRITERIA FOR LVH, CONSIDE R NORMAL VARIANT BORDERLINE ECG INTERPRETATION BASED ON A DEFAULT AGE OF 40 YEARS NO PREVIOUS TRACING DOCTOR: Brock Wesley Interpretating Date/Time 03/02/2018 13:54:25
== END | disposition home or self-care (01) ==
LOC: HSDC 05:26
PROVIDERS: ATTEND Podiatrist Foot & Ankle Surgery
DX: I96 Gangrene, not elsewhere classified (principal); S91.302A Unspecified open wound, left foot, initial encounter; T79.6XXA Traumatic ischemia of muscle, initial encounter; R94.31 Abnormal electrocardiogram [ECG] [EKG]; Z98.890 Other specified postprocedural states
CPT/HCPCS: 01462; 15275; 15276; 20694; 28810; 73630; 88307; 93005; J0131; J0330; J0690; J1100; J1170; J2250; J2405; J7120; Q4148; 88304; 88311